=== PATIENT | female | born 1995 | race Asian ===

== ENCOUNTER 2023-10-26 08:40 | Outpatient (REF) | payer OTHER, SELFPAY ==
--- NOTE | ~2023-10-26 | US_ITS ---
EXAMINATION: US PELVIS CLINICAL INFORMATION: Pelvic and perineal pain, last menstrual period approximately 2 weeks ago, IUD COMPARISON: None available. TECHNIQUE: Ultrasound of the pelvis is performed using both transabdominal and transvaginal transducers along with Doppler. Transvaginal imaging is performed due to inadequate visualization transabdominally. FINDINGS: The uterus measures 8.0 x 3.4 x 5.0 cm. No discrete fibroids are appreciated. Endometrial thickness is 4 mm. IUD within the endometrial cavity. Right ovary measures 2.1 x 2.1 x 1.6 cm, volume 5.4 mm and is unremarkable. Small amount of free fluid. Left ovary measures 3.9 x 2.5 x 2.0 cm, volume 10.1 mm. Left ovarian 1.2 x 1.4 x 1.0 cm complex, thick-walled cyst is difficult to characterize due to the limited visualization due to bowel gas, but may represent a physiologic cyst such as a corpus luteum. US/US pelvic and transvaginal IMPRESSION: IUD within the endometrial cavity. Left ovarian 1.2 x 1.4 x 1.0 cm complex, thick-walled cyst is difficult to characterize due to the limited visualization due to bowel gas, but may represent a physiologic cyst such as a corpus luteum. Correlation with clinical exam recommended to determine further management for this patient with pelvic and perineal pain. Recommend follow-up ultrasound in 6-8 weeks.
== END 2023-10-26 08:41 | disposition home or self-care (01) ==
LOC: HO.UMASIMG 08:40
PROVIDERS: Visit Provider Family Medicine
DX: R10.2 Pelvic and perineal pain (principal); H93.A2 Pulsatile tinnitus, left ear
CPT/HCPCS: 76830; 76856